=== PATIENT | male | born 1970 | race Caucasian/White ===

== ENCOUNTER 2017-02-12 15:36 | Emergency (ER) | payer OTHER ==
[~2017-02-12 15:36] MED LIST: BACT800T5 PO; CEPH500C3 PO; CORTIS10A LEFT EAR
[2017-02-12 15:40] VITALS: BP 118/73; PULSE 73; RESP 20; TEMP 98.8; O2SAT 94
[2017-02-12] MEDS ORDERED: LIDOCAINE HCL 1% 50 ML VIAL INFIL ONE (16:15)
[2017-02-12] MEDS ORDERED: CLINDAMYCIN INJ 600 MG in SODIUM CHLORIDE 0.9% INJ 100 ML IV ONE (16:15)
[2017-02-12 16:34] LABS: AUTOMATED NEUTROPHIL # 7.3 TH/MM3 (1.8-7.7); BASOPHIL # 0.1 TH/MM3 (0-0.2); BASOPHIL % 1.1 % (0.0-2.0); EOSINOPHIL # 0.2 TH/MM3 (0-0.4); HEMATOCRIT 44.9 % (39.0-51.0); HEMO FLAGS DIFF FINAL; LYMPH % 22.9 % (9.0-44.0); LYMPHOCYTE # 2.6 TH/MM3 (1.0-4.8); MEAN CELL VOLUME 90.4 FL (80.0-100.0); MEAN CORPUSCULAR HEMOGLOBIN 30.3 PG (27.0-34.0); MEAN CORPUSCULAR HGB CONC 33.5 % (32.0-36.0); MONO % 10.2 % (0.0-8.0); NEUT % 63.8 % (16.0-70.0); PLATELET COUNT 272 TH/MM3 (150-450); RED BLOOD COUNT 4.97 MIL/MM3 (4.50-5.90); RED CELL DISTRIBUTION WIDTH 13.5 % (11.6-17.2); WHITE BLOOD COUNT 11.3 TH/MM3 (4.0-11.0)
[2017-02-12 16:39] LABS: POTASSIUM 4.4 MEQ/L (3.5-5.1)
[2017-02-12 16:43] LABS: BICARBONATE 27.1 MEQ/L (21.0-32.0)
--- NOTE | 2017-02-12 17:21 | RADRPT ---
EXAM DATE/TIME: 02/12/2017 17:00 [place] COMPARISON: No previous studies available for comparison. INDICATIONS : Left arm abscess. MEDICAL HISTORY : Gastroesophageal reflux disease. Ulcer. Congenital single kidney. Chronic back pain. Depressio n. Anxiety. Substance abuse. MRSA. SURGICAL HISTORY : None. ENCOUNTER: Initial ACUITY: 2 days PAIN SCORE: 9/10 LOCATION: Left arm. AREA EVALUATED: Left hand and left wrist. FINDINGS: There are 2 complex fluid collections evident one anterior mid wrist measuring 3 cm. The second late ral aspect of an anteriorly measuring 2.4 cm. These would be consistent with an abscess in the proper clinical situation. CONCLUSION: 2 septated abscesses as described above. Both currently confined to the superficial tissues. Arpit Jorgensen MD FACR on February 12, 2017 at 17:17 Board Certified Radiologist. This report was verified electronically.
[2017-02-12] MEDS ORDERED: MORPHINE SULFATE 4 MG/ML INJ IV PUSH ONE (17:30)
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
--- NOTE | 2017-02-12 17:54 | PD ---
Physical Exam Time Seen by Provider: 17:30 Data Data Last Documented VS Vital Signs Date Time Temp Pulse Resp B/P (MAP) Pulse Ox O2 Delivery O2 Flow Rate FiO2 02/12/17 15:40 98.8 73 20 118/73 (88) 94 Orders Orders Us Arm Soft Tissue (02/12/17 ) Complete Blood Count With Diff (02/12/17 16:08) Basic Metabolic Panel (Bmp) (02/12/17 16:08) Blood Culture (02/12/17 16:08) Lactic Acid Sepsis Protocol (02/12/17 16:08) Clindamycin Inj (Cleocin Inj) (02/12/17 16:15) Lidocaine 1% Inj (50 Ml) (Xylocaine 1% I (02/12/17 16:15) Morphine Inj (Morphine Inj) (02/12/17 17:30) Labs Laboratory Tests Test 02/12/17 16:15 White Blood Count 11.3 TH/MM3 Red Blood Count 4.97 MIL/MM3 Hemoglobin 15.0 GM/DL Hematocrit 44.9 % Mean Corpuscular Volume 90.4 FL Mean Corpuscular Hemoglobin 30.3 PG Mean Corpuscular Hemoglobin Concent 33.5 % Red Cell Distribution Width 13.5 % Platelet Count 272 TH/MM3 Mean Platelet Volume 7.1 FL Neutrophils (%) (Auto) 63.8 % Lymphocytes (%) (Auto) 22.9 % Monocytes (%) (Auto) 10.2 % Eosinophils (%) (Auto) 2.0 % Basophils (%) (Auto) 1.1 % Neutrophils # (Auto) 7.3 TH/MM3 Lymphocytes # (Auto) 2.6 TH/MM3 Monocytes # (Auto) 1.1 TH/MM3 Eosinophils # (Auto) 0.2 TH/MM3 Basophils # (Auto) 0.1 TH/MM3 CBC Comment DIFF FINAL Differential Comment Blood Urea Nitrogen 15 MG/DL Creatinine 1.00 MG/DL Random Glucose 84 MG/DL Calcium Level 8.5 MG/DL Sodium Level 138 MEQ/L Potassium Level 4.4 MEQ/L Chloride Level 105 MEQ/L Carbon Dioxide Level 27.1 MEQ/L Anion Gap 6 MEQ/L Estimat Glomerular Filtration Rate 80 ML/MIN Lactic Acid Level 0.8 mmol/L [facility] Medical Record Reviewed: Yes Supervised Visit with [place]: Yes Narrative Course I was asked by Dr. Humphreys to perform an incision and drainage on this patient. Please see her note for further details. Procedures Procedure Narrative INCISION AND DRAINAGE OF HAND ABSCESS: The area was prepped and was sterilely draped. A subcutaneous wheal of 1% lidocaine with a total number 3 mL was used to anesthetize the area properly. A number 11 scalpel was used to make a 1 cm incision across the area of the abscess. The abscess was drained, complex loculations were broken down, and irrigated with normal saline. Quarter inch iodoform packing was placed in the wound. Sterile dressing applied. Patient advised to have packing removed in two days. INCISION AND DRAINAGE OF WRIST ABSCESS: The area was prepped and was sterilely draped. A subcutaneous wheal of 1% lidocaine with a total number 3 mL was used to anesthetize the area properly. A number 11 scalpel was used to make a 1 cm incision across the area of the abscess. The abscess was drained, complex loculations were broken down, and irrigated with normal saline. Cultures were obtained. Quarter inch iodoform packing was placed in the wound. Sterile dressing applied. Patient advised to have packing removed in two days. Scripts No Active Prescriptions or Reported Meds Idalia Brown Feb 12, 2017 17:54
[2017-02-12] MEDS ORDERED: IBUP-232 PO (18:06)
[2017-02-12] MEDS ORDERED: CLIN1CAP6 PO (18:06)
[2017-02-12 18:12] VITALS: BP 115/74; PULSE 70; RESP 16; O2SAT 94
== END 2017-02-12 18:21 | disposition home or self-care (01) ==
LOC: PHED 15:36
DX: L02.512 Cutaneous abscess of left hand (principal); W22.8XXA Striking against or struck by other objects, initial encounter; Y93.H9 Activity, other involving exterior property and land maintenance, building and construction; K21.9 Gastro-esophageal reflux disease without esophagitis; Z86.14 Personal history of Methicillin resistant Staphylococcus aureus infection; F17.210 Nicotine dependence, cigarettes, uncomplicated
CPT/HCPCS: 10061; 76882; 80048; 83605; 85025; 87040; 87070; 96365; 96375; 99285; J2270; 87205